=== PATIENT | female | born 1950 ===

== ENCOUNTER → 2024-06-19 | Outpatient (CLI) | payer MEDICARE | END | disposition home or self-care (01) | LOC: LAB 17:31 → LAB SHORT 17:31 | DX: L30.4 Erythema intertrigo (principal); A49.9 Bacterial infection, unspecified | CPT/HCPCS: 87070; 87205 ==

== ENCOUNTER → 2024-07-19 | Outpatient (CLI) | payer MEDICARE | END | disposition home or self-care (01) | LOC: LAB 08:37 → LAB SHORT 08:37 | DX: R35.0 Frequency of micturition (principal) | CPT/HCPCS: 87086 ==